=== PATIENT | male | born 1940 | race Caucasian/White ===

== ENCOUNTER 2017-10-09 09:44 | Inpatient (IN) | payer MEDICARE, OTHER ==
[~2017-10-09] VITALS: Ht 177.8 cm; Wt 68.0 kg
--- NOTE | 2017-10-09 09:50 | NUR ---
ERIC FROM [facility] FOR NAUSEA AND VOMITING, REPOTS 1 EPISODE OF COFFEE GROUND EMESIS. NO ACTIVE VOMITING NOTED. PT AAOX3. MD AT BS AND TESTED PT FOR OCCULT BLOOD- NEGATIVE. VSS. SAFETY AND COMFORT MEASURES PROVIDED. WILL MONITOR.
[2017-10-09] MEDS ORDERED: ONDANSETRON HCL/PF 4 MG/2 ML VIAL ONE (10:16)
[2017-10-09 10:25] LABS: BASOPHILS # (AUTO) 0.1 /CMM (0.0-0.2); BASOPHILS % (AUTO) 0.5 % (0.0-2.0); EOSINOPHILS % (AUTO) 0.1 % (0.0-6.0); HEMATOCRIT 35 % (39-51); HEMOGLOBIN 11.3 g/dL (13.5-17.5); LYMPHOCYTES # (AUTO) 0.4 /CMM (0.8-4.8); MEAN CORPUSCULAR HEMOGLOBIN 28 PG (26.0-33.0); MEAN CORPUSCULAR HGB CONC 32 g/dl (31.0-36.0); MEAN CORPUSCULAR VOLUME 87 fL (80-96); MONOCYTES # (AUTO) 0.6 /CMM (0.1-1.30); MONOCYTES % (AUTO) 4.1 % (2.0-12.0); NEUTROPHILS # (AUTO) 12.8 /CMM (1.8-8.9); NEUTROPHILS % (AUTO) 92.3 % (43.0-81.0); PLATELET COUNT (AUTO) 440 /CMM (150-450); RDW COEFFICIENT OF VARIATION 15.7 (11.5-15.0); RED BLOOD CELL COUNT(AUTO) 4.07 MIL/uL (4.5-6.0); WHITE BLOOD COUNT (AUTO) 13.9 K/uL (4.3-11.0)
--- NOTE | 2017-10-09 10:29 | NUR ---
IV ACCESS STARTED. BLOOD DRAWN FOR LABS AND MEDICATED ORDERED.
[2017-10-09] MEDS ORDERED: IV NS 0.9% 500 ML BAG IV ONE (10:30)
[2017-10-09] MEDS ORDERED: ONDANSETRON HCL/PF 4 MG/2 ML VIAL IVP ONE (10:30)
[2017-10-09 10:33] LABS: CALCIUM, SERUM 9.4 mg/dL (8.5-10.1); CARBON DIOXIDE 37 mmol/L (21-32); CHLORIDE 94 mmol/L (98-107); CREATININE 0.7 mg/dL (0.6-1.3); GLUCOSE 140 mg/dL (74-106); POTASSIUM 4.6 mmol/L (3.5-5.1); SODIUM SERUM 130 mmol/L (136-145); UREA NITROGEN, BLOOD 29 mg/dL (7-18)
[2017-10-09 10:37] LABS: INR 1.11 (0.85-1.15)
[2017-10-09] MEDS ORDERED: ACET-2605 GT (10:37)
[2017-10-09] MEDS ORDERED: ATOR10TA GT (10:37)
[2017-10-09] MEDS ORDERED: FOLI1TAB16 GT (10:37)
[2017-10-09] MEDS ORDERED: TIOT18CA3 IH (10:37)
[2017-10-09] MEDS ORDERED: IPRA3AMP23 IH (10:37)
[2017-10-09] MEDS ORDERED: MEMA10SO GT (10:37)
[2017-10-09] MEDS ORDERED: DOCU50LI GT (10:37)
[2017-10-09] MEDS ORDERED: MULT-447 GT (10:37)
[2017-10-09] MEDS ORDERED: THIA100T13 GT (10:37)
[2017-10-09] MEDS ORDERED: MAGN400O6 GT (10:37)
[2017-10-09] MEDS ORDERED: ACET650S26 GT (10:37)
[2017-10-09] MEDS ORDERED: TERA2CAP4 GT (10:37)
[2017-10-09] MEDS ORDERED: SENN-167 GT (10:37)
[2017-10-09] MEDS ORDERED: NUTR150016 GT (10:37)
[2017-10-09] MEDS ORDERED: ASCO500T9 GT (10:37)
[2017-10-09 10:38] LABS: ALANINE AMINOTRANSFERASE 32 U/L (12-78); ALBUMIN 2.5 g/dL (3.4-5.0); ALKALINE PHOSPHATASE 108 U/L (46-116); ASPARTATE AMINOTRANSFERASE 23 U/L (15-37); BILIRUBIN,DIRECT 0.1 mg/dL (0.0-0.2); BILIRUBIN,TOTAL 0.3 mg/dL (0.2-1.0); LIPASE 122 U/L (73-393); TOTAL PROTEIN, SERUM 8.5 g/dL (6.4-8.2)
[2017-10-09 10:41] LABS: TROPONIN I < 0.017 ng/mL (0.00-0.056)
--- NOTE | 2017-10-09 10:49 | NUR ---
[facility] paged [phone], maykel packer dnp complaint investigations officer
[2017-10-09] MEDS ORDERED: METOCLOPRAMIDE HCL 10 MG/2 ML VIAL ONE (10:57)
[2017-10-09] MEDS ORDERED: MORPHINE SULFATE INJ 2 MG/ML DISP.SYRIN ONE (10:58)
[2017-10-09] MEDS ORDERED: MORPHINE SULFATE INJ 2 MG/ML DISP.SYRIN IV ONE (11:00)
[2017-10-09] MEDS ORDERED: IV NS 0.9% 500 ML IV ONE (11:00)
[2017-10-09] MEDS ORDERED: METOCLOPRAMIDE HCL 10 MG/2 ML VIAL IV ONE (11:00)
[2017-10-09] MEDS ORDERED: PANTOPRAZOLE 40 MG VIAL IV ONE (11:00)
[2017-10-09] MEDS ORDERED: PANTOPRAZOLE 40 MG VIAL ONE (11:16)
--- NOTE | 2017-10-09 11:38 | NUR ---
REPORT GIVEN TO DERRICK AREVALO FOR TELE.
[2017-10-09 12:00] VITALS: BP 112/71
--- NOTE | 2017-10-09 12:00 | NUR ---
SUPERVISOR SAMPLE NOTES ADMITTED FOR ER REPORT GIVEN BY IHSAN. PATIENT ALERT ORIENTED X 4, NO ACUTE DISTRESS NOTED. BREATHING UNLABORED. SKIN IS SOFT AND WARM TO TOUCH. ON 2LPM VIA NC SATURATING AT 97%. NO SOB NOTED. IV ACCESS PATENT AND INTACT, NO REDNESS OR SWELLING NOTED. GTUBE INTACT AND PATENT. PHOTOS TAKEN PLACED AT THE CHART.PLACED TELE MONITOR. ORIENTED TO THE ROOM. SAFETY MEASURES IN PLACE. CALL LIGHT WITHIN REACH WILL CONTINUE TO MONITOR ACCORDINGLY.
[2017-10-09] MEDS ORDERED: MAGNESIUM HYDROXIDE 30 ML UDC GT PRN (14:00)
[2017-10-09] MEDS ORDERED: Z GUARD REMEDY 2 OZ OINT TP PRN (14:00)
[2017-10-09] MEDS ORDERED: ONDANSETRON HCL/PF 4 MG/2 ML VIAL IVP PRN (14:00)
[2017-10-09] MEDS: IV NS 0.9% 1,000 ML IV PRN (14:58)
[2017-10-09 16:00] VITALS: BP 112/68
--- NOTE | 2017-10-09 16:00 | NUR ---
VALIDATION INTERN NOTES SEEN AND EVALUATED BY DR MARTIN WETZEL, SAID NO GI INTERVENTION FOR NOW, MAY START GTUBE FEEDING.
[2017-10-09] MEDS ORDERED: FEE PK DOSING 1 MIN EA MC ONE (16:58)
[2017-10-09] MEDS ORDERED: VANCOMYCIN 1 GM in IV D5W 250 ML IV ONE (17:00)
[2017-10-09] MEDS: JEVITY 1.2 CAL 1,000 ML BOTTLE GT PRN (17:35)
[2017-10-09] MEDS: DOCUSATE SODIUM LIQ 100 MG/10 ML UDC GT SCH (17:35)
--- NOTE | 2017-10-09 18:54 | NUR ---
TALLOW PUMPER NOTES PATIENT IN BED EYES CLOSED, AROUSABLE. RESPONSIVE TO VERBAL AND TACTILE STIMULI. NO ACUTE DISTRESS NOTED. BREATHING UNLABORED. NO SOB NOTED. IV ACCESS PATENT AND INTACT, NO REDNESS OR SWELLING NOTED. GTUBE FEEDING INFUSING WELL. HOB ELEVATED. SAFETY MEASURES IN PLACE. DUE MEDICATIONS GIVEN NO ASE NOTED. NEEDS ATTENDED AND ANTICIPATED. CALL LIGHT WITHIN REACH. WILL CONTINUE TO MONITOR ACCORDINGLY. WILL ENDORSE TO NIGHT NURSE FOR CONTINUITY OF CARE.
[2017-10-09] MEDS: PIPERACILLIN /TAZOBACTAM 3.375 G in IV D5W 50 ML IV SCH (18:57)
--- NOTE | 2017-10-09 19:10 | NUR ---
TELE/RN NOTES RECEIVED PT. LYING IN BED. PT. IS AWAKE, ALERT AND ORIENTED X2-3. BREATHING EVEN AND UNLABORED ON 2LPM O2 VIA NC. NO SOB, RESPIRATORY DISTRESS OR COMPLAINTS OF PAIN NOTED AT THIS TIME. NO COMPLAINTS OF N/V AT THIS TIME. NO S/S OF BLEEDING NOTED AT THIS TIME. PT. WITH EXTERNAL SNORKELLING INSTRUCTOR PRESENT AND INTACT. CURRENT RHYTHM = SINUS TACHYCARDIA HR 106. PT. WITH RIGHT FOREARM 20 GAUGE PERIPHERAL IV PRESENT, PATENT AND INTACT ADMINISTERING TO PT. NS @ 75ML/HR. PT. WITH G-TUBE PRESENT, PATENT AND INTACT ADMINISTERING TO PT. JEVITY @ 75 ML/HR. PT. TOLERATING WELL, NO RESIDUAL NOTED AT THIS TIME. BED LOCKED AND IN LOWEST POSITION, SIDE RAILS UP X3, BED ALARM ON, CALL LIGHT WITHIN REACH, WILL CONTINUE TO MONITOR.
[2017-10-09] MEDS: IPRATROPIUM NEB FS 0.5 MG/2.5 ML AMPUL.NEB NEB SCH (19:30)
[2017-10-09 20:00] VITALS: BP 107/60
[2017-10-09] MEDS: PANTOPRAZOLE 40 MG/PACK PACK GT SCH (21:35)
[2017-10-09] MEDS: SENNOSIDES 8.6 MG TABLET GT SCH (21:35)
[2017-10-09] MEDS: TERAZOSIN HCL 1 MG CAPSULE GT SCH (21:36)
[2017-10-09] MEDS: ATORVASTATIN 10 MG TABLET GT SCH (21:36)
[2017-10-10] MEDS: PIPERACILLIN /TAZOBACTAM 3.375 G in IV D5W 50 ML IV SCH ×4 (00:28→17:21)
[2017-10-10] MEDS: IPRATROPIUM NEB FS 0.5 MG/2.5 ML AMPUL.NEB NEB SCH ×4 (01:30→19:34)
[2017-10-10] MEDS: VANCOMYCIN 1 GM in IV D5W 250 ML IV SCH ×2 (04:51→16:16)
[2017-10-10] MEDS: IV NS 0.9% 1,000 ML IV PRN ×2 (05:54→22:05)
--- NOTE | 2017-10-10 06:23 | NUR ---
MS/RN NOTES PT. IS LYING IN BED RESTING. BREATHING EVEN AND UNLABORED ON 2LPM O2 VIA NC. NO SOB, RESPIRATORY DISTRESS OR COMPLAINTS OF PAIN NOTED AT THIS TIME. NO COMPLAINTS OF N/V AT THIS TIME AND THROUGHOUT SHIFT. NO S/S OF BLEEDING NOTED AT THIS TIME AND THROUGHOUT SHIFT. WITH RIGHT FOREARM 20 GAUGE PERIPHERAL IV PRESENT, PATENT AND INTACT ADMINISTERING TO PT. NS @ 75ML/HR. PT. WITH G-TUBE PRESENT, PATENT AND INTACT ADMINISTERING TO PT. JEVITY @ 75 ML/HR. PT. TOLERATING WELL, NO RESIDUAL NOTED AT THIS TIME AND THROUGHOUT SHIFT. ALL PT. NEEDS MET. PT. OFFLOADED, PT. TURNED AND REPOSITIONED Q2H AND NEEDED. BED LOCKED AND IN LOWEST POSITION, SIDE RAILS UP X3, BED ALARM ON, CALL LIGHT WITHIN REACH, WILL ENDORSE TO DAYSHIFT NURSE FOR CONTINUITY OF CARE.
[2017-10-10 06:56] LABS: HEMATOCRIT 28 % (39-51); HEMOGLOBIN 8.8 g/dL (13.5-17.5); LYMPHOCYTES # (AUTO) 0.3 /CMM (0.8-4.8); LYMPHOCYTES % (AUTO) 1.2 % (20.0-44.0); MEAN CORPUSCULAR HEMOGLOBIN 28 PG (26.0-33.0); MEAN CORPUSCULAR HGB CONC 31 g/dl (31.0-36.0); MEAN CORPUSCULAR VOLUME 90 fL (80-96); MONOCYTES # (AUTO) 1.4 /CMM (0.1-1.30); MONOCYTES % (AUTO) 5.6 % (2.0-12.0); NEUTROPHILS # (AUTO) 23.1 /CMM (1.8-8.9); NEUTROPHILS % (AUTO) 93.2 % (43.0-81.0); PLATELET COUNT (AUTO) 293 /CMM (150-450); RDW COEFFICIENT OF VARIATION 16.8 (11.5-15.0); RED BLOOD CELL COUNT(AUTO) 3.11 MIL/uL (4.5-6.0); RETICULOCYTE COUNT 3.3 % (0.6-2.5); WHITE BLOOD COUNT (AUTO) 24.8 K/uL (4.3-11.0)
--- NOTE | 2017-10-10 07:05 | NUR ---
AUTOMATIC PRESSER NOTES PATIENT LYING IN BED COMFORTABLY, EYES CLOSED, AROUSABLE. RESPONSIVE TO VERBAL AND TACTILE STIMULI. NO ACUTE DISTRESS NOTED. BREATHING UNLABORED. NO SOB NOTED.ON O2 @ 2LPM VIA NC. IV ACCESS PATENT AND INTACT, NO REDNESS OR SWELLING NOTED. GTUBE FEEDING INFUSING WELL. HOB ELEVATED. SAFETY MEASURES IN PLACE. CALL LIGHT WITHIN REACH. WILL CONTINUE TO MONITOR ACCORDINGLY.
[2017-10-10 07:13] LABS: ALANINE AMINOTRANSFERASE 27 U/L (12-78); ALBUMIN 1.8 g/dL (3.4-5.0); ALKALINE PHOSPHATASE 73 U/L (46-116); ASPARTATE AMINOTRANSFERASE 18 U/L (15-37); BILIRUBIN,TOTAL 0.2 mg/dL (0.2-1.0); CALCIUM, SERUM 7.5 mg/dL (8.5-10.1); CARBON DIOXIDE 33 mmol/L (21-32); CHLORIDE 100 mmol/L (98-107); CREATININE 0.6 mg/dL (0.6-1.3); GLUCOSE 181 mg/dL (74-106); MAGNESIUM 1.8 mg/dL (1.8-2.4); PHOSPHORUS 2.1 mg/dL (2.5-4.9); POTASSIUM 4.3 mmol/L (3.5-5.1); SODIUM SERUM 133 mmol/L (136-145); TOTAL PROTEIN, SERUM 6.2 g/dL (6.4-8.2); UREA NITROGEN, BLOOD 18 mg/dL (7-18)
[2017-10-10 07:18] LABS: CHOLESTEROL 59 mg/dL (<200); HDL CHOLESTEROL 40 mg/dL (40-60); LDL 22 mg/dL (0-99); THYROID STIMULATING HORMONE 0.673 uIU/mL (0.358-3.74); TRIGLYCERIDES 10 mg/dL (30-150)
[2017-10-10 07:45] LABS: IRON, SERUM 11 ug/dl (50-175); TOTAL IRON BINDING CAPACITY 206 ug/dl (250-450)
[2017-10-10 08:00] VITALS: BP 93/51
[2017-10-10] MEDS: JEVITY 1.2 CAL 1,000 ML BOTTLE GT PRN (08:41)
[2017-10-10] MEDS: PANTOPRAZOLE 40 MG/PACK PACK GT SCH ×2 (08:42→21:51)
[2017-10-10] MEDS: DOCUSATE SODIUM LIQ 100 MG/10 ML UDC GT SCH ×2 (08:42→17:20)
[2017-10-10] MEDS: FOLIC ACID 1 MG TABLET GT SCH (08:42)
[2017-10-10] MEDS: ASCORBIC ACID 500 MG TABLET GT SCH (08:42)
[2017-10-10] MEDS: MEMANTINE HCL 5 MG TABLET GT SCH (08:42)
[2017-10-10] MEDS: THIAMINE HCL 100 MG TABLET GT SCH (08:42)
[2017-10-10] MEDS ORDERED: TIOTROPIUM BROMIDE 6 CAP/BOX CAP.W.DEV IH SCH (09:00)
[2017-10-10 09:20] LABS: BAND % (MANUAL) 2 % (0.0-5.0); LYMPHOCYTES % (MANUAL) 1 % (16-48); MONOCYTES % (MANUAL) 6 % (0-11.0); NEUTROPHILS % (MANUAL) 91 (42-76)
[2017-10-10] MEDS ORDERED: NEUTRA PHOS 1 POWD.PACKET PO ONE (15:30)
[2017-10-10 16:00] VITALS: BP 90/51
--- NOTE | 2017-10-10 19:00 | NUR ---
MS RN NOTES PATIENT LYING IN BED COMFORTABLY, WATCHING TV, ALERT ORIENTED X3. NO ACUTE DISTRESS NOTED. BREATHING UNLABORED. NO SOB NOTED.ON O2 @ 2LPM VIA NC. IV ACCESS PATENT AND INTACT, NO REDNESS OR SWELLING NOTED. GTUBE FEEDING INFUSING WELL. HOB ELEVATED. SAFETY MEASURES IN PLACE. CALL LIGHT WITHIN REACH. ENDORSED TO NIGHT NURSE FOR CONTINUITY OF CARE.
--- NOTE | 2017-10-10 19:10 | NUR ---
MS/RN NOTES RECEIVED PT. LYING IN BED. PT. IS AWAKE, ALERT AND ORIENTED X2-3. BREATHING EVEN AND UNLABORED ON 2LPM O2 VIA NC. NO SOB, RESPIRATORY DISTRESS OR COMPLAINTS OF PAIN NOTED AT THIS TIME. NO COMPLAINTS OF N/V AT THIS TIME. NO S/S OF BLEEDING NOTED AT THIS TIME. PT. WITH RIGHT FOREARM 20 GAUGE PERIPHERAL IV PRESENT, PATENT AND INTACT ADMINISTERING TO PT. NS @ 75ML/HR. PT. WITH G-TUBE PRESENT, PATENT AND INTACT ADMINISTERING TO PT. JEVITY @ 75 ML/HR. PT. TOLERATING WELL, NO RESIDUAL NOTED AT THIS TIME. BED LOCKED AND IN LOWEST POSITION, SIDE RAILS UP X3, BED ALARM ON, CALL LIGHT WITHIN REACH, WILL CONTINUE TO MONITOR.
[2017-10-10] MEDS: ACETAMINOPHEN 650 MG/20.3 ML UDC GT PRN (20:15)
[2017-10-10 20:38] VITALS: BP 94/58
[2017-10-10 21:17] LABS: APPEARANCE,URINE CLEAR (CLEAR); BILIRUBIN,URINE NEGATIVE (NEGATIVE); BLOOD, URINE NEGATIVE Ery/uL (NEGATIVE); COLOR,URINE YELLOW (YELLOW); KETONES,URINE TRACE (NEGATIVE); LEUKOCYTE ESTERASE ,URINE NEGATIVE (NEGATIVE); NITRITE, URINE NEGATIVE (NEGATIVE); PROTEIN,URINE TRACE mg/dl (NEGATIVE); UGLUCOSE NEGATIVE (NEGATIVE)
[2017-10-10 21:35] LABS: BACTERIA,URINE None seen /HPF (None Seen); RBC,URINE 0-2 /HPF (0-2); SQUAMOUS EPITHELIAL CELL,UR Few /HPF (None Seen); WBC,URINE 0-2 /HPF (0-3)
[2017-10-10] MEDS: ATORVASTATIN 10 MG TABLET GT SCH (21:51)
[2017-10-10] MEDS: TERAZOSIN HCL 1 MG CAPSULE GT SCH (21:51)
[2017-10-10] MEDS: SENNOSIDES 8.6 MG TABLET GT SCH (21:51)
[2017-10-11] MEDS: PIPERACILLIN /TAZOBACTAM 3.375 G in IV D5W 50 ML IV SCH ×5 (00:20→23:34)
[2017-10-11] MEDS: IPRATROPIUM NEB FS 0.5 MG/2.5 ML AMPUL.NEB NEB SCH ×4 (01:42→19:35)
[2017-10-11] MEDS: JEVITY 1.2 CAL 1,000 ML BOTTLE GT PRN (03:58)
[2017-10-11] MEDS: HYDROCODONE/APAP 10/325MG 1 EA TABLET GT PRN ×3 (04:08→16:04)
[2017-10-11 04:46] LABS: HEMATOCRIT 27 % (39-51); HEMOGLOBIN 8.3 g/dL (13.5-17.5); LYMPHOCYTES # (AUTO) 0.5 /CMM (0.8-4.8); LYMPHOCYTES % (AUTO) 2.8 % (20.0-44.0); MEAN CORPUSCULAR HEMOGLOBIN 28 PG (26.0-33.0); MEAN CORPUSCULAR HGB CONC 31 g/dl (31.0-36.0); MEAN CORPUSCULAR VOLUME 90 fL (80-96); MONOCYTES # (AUTO) 1.8 /CMM (0.1-1.30); MONOCYTES % (AUTO) 10.3 % (2.0-12.0); NEUTROPHILS # (AUTO) 15.1 /CMM (1.8-8.9); NEUTROPHILS % (AUTO) 86.9 % (43.0-81.0); PLATELET COUNT (AUTO) 290 /CMM (150-450); RDW COEFFICIENT OF VARIATION 16.5 (11.5-15.0); RED BLOOD CELL COUNT(AUTO) 2.97 MIL/uL (4.5-6.0); WHITE BLOOD COUNT (AUTO) 17.4 K/uL (4.3-11.0)
[2017-10-11 05:00] LABS: CARBON DIOXIDE 33 mmol/L (21-32); CHLORIDE 99 mmol/L (98-107); CREATININE 0.6 mg/dL (0.6-1.3); GLUCOSE 88 mg/dL (74-106); MAGNESIUM 1.9 mg/dL (1.8-2.4); PHOSPHORUS 2.6 mg/dL (2.5-4.9); SODIUM SERUM 130 mmol/L (136-145); UREA NITROGEN, BLOOD 16 mg/dL (7-18)
[2017-10-11] MEDS: VANCOMYCIN 1 GM in IV D5W 250 ML IV SCH ×2 (05:20→18:03)
--- NOTE | 2017-10-11 06:56 | NUR ---
MS/RN NOTES PT. IS LYING IN BED RESTING. BREATHING EVEN AND UNLABORED ON 2LPM O2 VIA NC. NO SOB, RESPIRATORY DISTRESS OR COMPLAINTS OF PAIN NOTED AT THIS TIME. PT. WITH RIGHT FOREARM 20 GAUGE PERIPHERAL IV PRESENT, PATENT AND INTACT ADMINISTERING TO PT. NS @ 75ML/HR. PT. WITH G-TUBE PRESENT, PATENT AND INTACT ADMINISTERING TO PT. JEVITY @ 75 ML/HR. PT. TOLERATING WELL, NO RESIDUAL NOTED AT THIS TIME. ALL PT. NEEDS MET. PT. OFFLOADED, TURNED AND REPOSITIONED Q2H AND NEEDED. BED LOCKED AND IN LOWEST POSITION, SIDE RAILS UP X3, BED ALARM ON, CALL LIGHT WITHIN REACH, WILL ENDORSE TO DAYSHIFT NURSE FOR CONTINUITY OF CARE.
--- NOTE | 2017-10-11 07:40 | NUR ---
MS RN OPENING NOTES RECEIVED PT LAYING IN BED WITH HOB ELEVATED, RESTING COMFORTABLY. PT IS ALERT AND RESPONSIVE. PUPILS ARE REACTIVE TO LIGHT. BILATERAL HAND HYDROELECTRIC COMPONENT MACHINIST ARE STRONG AND EQUAL. PT DENIES ANY PAIN, N/V, SOB. IV INTACT, NO INFILTRATION NOTED. DRESSING KEPT CLEAN AND DRY. GT INTACT, RECEIVING JEVITY 1.2 @ 75ML/HR X20 HRS, NO RESIDUAL NOTED. ELEVATED HOB TO PREVENT ANY ASPIRATION. SAFETY MEASURES ARE IN PLACE. CALL LIGHT IS LEFT WITHIN REACH. WILL MONITOR THROUGHOUT SHIFT FOR CONTINUITY OF CARE.
--- NOTE | 2017-10-11 09:15 | NUR ---
MS RN NOTE RECEIVED REPORT FROM SHELBY. PATIENT WAS TRANSFERRED TO [facility] SECOND FLOOR ACCOMPANIED BY ASSIGNED RN AND POWER BALLAST MACHINE OPERATOR. PATIENT IS STABLE. ALERT ORIENTED X3, VITAL SIGNS STABLE. IN NO APPARENT DISTRESS OR DISCOMFORT AT THIS TIME. ON 3L O2 VIA NC. TOLERATING WELL. DENIES PAIN AND SOB. IV ACCESS ON RIGHT FA PATENT AND INTACT. G-TUBE IN PLACE, PATENT WITH 3ML RESIDUAL. WAS MADE COMFORTABLE IN BED. PATIENT KEPT CLEAN. SAFETY MEASURES IN PLACE, BED IN LOW LOCKED POSITION, SIDE RAILS UP X2, CALL LIGHT WITHIN EASY REACH, FAMILY AT BEDSIDE. WILL TAKE OVER PATIENT'S CARE AND CARRY OUT ALL FURTHER ORDERS.
--- NOTE | 2017-10-11 09:15 | NUR ---
MS BIOFUELS MANAGER NOTE PT TRANSFERRED TO [facility] 201 IN STABLE CONDITION VIA GURNEY. PT IS A/O X2-3, AFEBRILE. RESPIRATIONS ARE EVEN AND UNLABORED, NOT IN ANY ACUTE DISTRESS NOTED. PT DENIES ANY PAIN AT THIS TIME, NO C/O SOB, N/V NOTED. IV ACCESS INTACT, NO INFILTRATION NOTED. DRESSING KEPT CLEAN AND DRY. GT IN PLACE, PT TOLERATING FEEDING WELL. NO RESIDUAL NOTED. GAVE REPORT TO CHARLIE AREVALO AT BEDSIDE FOR CONTINUITY OF CARE.
[2017-10-11] MEDS: DOCUSATE SODIUM LIQ 100 MG/10 ML UDC GT SCH ×2 (09:34→16:04)
[2017-10-11] MEDS: THIAMINE HCL 100 MG TABLET GT SCH (09:34)
[2017-10-11] MEDS: ASCORBIC ACID 500 MG TABLET GT SCH (09:34)
[2017-10-11] MEDS: FOLIC ACID 1 MG TABLET GT SCH (09:34)
[2017-10-11] MEDS: PANTOPRAZOLE 40 MG/PACK PACK GT SCH ×2 (09:34→21:12)
[2017-10-11] MEDS: MEMANTINE HCL 5 MG TABLET GT SCH (09:34)
[2017-10-11 16:00] VITALS: BP 96/57
--- NOTE | 2017-10-11 17:30 | NUR ---
DURING MORNING ROUNDS, RECEIVED ORDER FROM KEVIN ISABEL NP TO OBTAIN STOOL SAMPLE FOR THE PATIENT. LATER IN THE DAY GI DOCTOR DR. WETZEL CAME, ASSESSED THE PATIENT AND ORDERED TO CANCEL THE STOOL OCCULT BLOOD TEST, THERE IS NO NEED ACCORDING TO HIM. ALSO GAVE VERBAL ORDER TO DISCONTINUE COLACE AND PLACE AND ORDER FOR MIRALAX ONE TIMES DAILY. VERBAL ORDERS READ BACK AND VERIFIED. WILL CARRY OUT AND CONTINUE TO MONITOR.
--- NOTE | 2017-10-11 19:40 | NUR ---
MS RN OPENING NOTES RECEIVED PT LAYING IN BED WITH HOB ELEVATED, RESTING COMFORTABLY. PT IS ALERT AND RESPONSIVE. PUPILS ARE REACTIVE TO LIGHT. BILATERAL HAND PLY BANDER ARE STRONG AND EQUAL. PT C/O MILD BACK PAIN, NO N/V, NO SOB. IV INTACT TO RFA WITH IVF ORDERED, NO INFILTRATION NOTED. DRESSING KEPT CLEAN AND DRY. GT INTACT, RECEIVING JEVITY 1.2 @ 75ML/HR X20 HRS, 8ML RESIDUAL NOTED. NPO. ELEVATED HOB TO PREVENT ANY ASPIRATION. SAFETY MEASURES ARE IN PLACE. CALL LIGHT IS LEFT WITHIN REACH. WILL MONITOR THROUGHOUT SHIFT FOR CONTINUITY OF CARE.
--- NOTE | 2017-10-11 19:48 | NUR ---
MS RN CLOSING NOTE PATIENT IN BED. SLEEPING, EASILY AROUSED WITH VERBAL STIMULI. ORIENTED X3, ON 3L O2 VIA NC. TOLERATING WELL. IN NO APPARENT DISTRESS OR DISCOMFORT AT THIS TIME. RESPIRATIONS EVEN AND UNLABORED. ABLE TO COMMUNICATE NEEDS. PATIENT USES DIAPER FOR ELIMINATION. GT FOR FEEDING WITH FEEDING RUNNING AT 75CC/HR. TOLERATING FEEDING WELL. IV FLUIDS RUNNING AT 75ML/HR VIA RIGHT HAND IV ACCESS. NO SIGN OF INFILTRATION IDENTIFIED. PATIENT KEPT CLEAN AND COMFORTABLE, ALL NEEDS ATTENDED. TURNED AND REPOSITIONED PER PROTOCOL. SAFETY MEASURES IN PLACE, BED IN LOW LOCKED POSITION, SIDE RAILS UP X2, CALL LIGHT WITHIN EASY REACH. WILL ENDORSE TO PM NURSE FOR BALJEET.
[2017-10-11 20:00] VITALS: BP 102/61
[2017-10-11] MEDS: ATORVASTATIN 10 MG TABLET GT SCH (21:12)
[2017-10-11] MEDS: SENNOSIDES 8.6 MG TABLET GT SCH (21:12)
[2017-10-11] MEDS: TERAZOSIN HCL 1 MG CAPSULE GT SCH (21:13)
[2017-10-11] MEDS: ACETAMINOPHEN 650 MG/20.3 ML UDC GT PRN (21:13)
--- NOTE | 2017-10-11 21:13 | NUR ---
PRN TYLENOL GIVEN PT HAD C/O PAIN IN THE BACK 05/16 & ASKED TO GET PAIN MEDICINE. PRN TYLENOL GIVEN VIA GT ORDERED. WILL MONITOR FOR EFFECTIVENESS.
[2017-10-12] MEDS: IPRATROPIUM NEB FS 0.5 MG/2.5 ML AMPUL.NEB NEB SCH ×3 (00:30→12:27)
[2017-10-12] MEDS: JEVITY 1.2 CAL 1,000 ML BOTTLE GT PRN (00:58)
[2017-10-12] MEDS: VANCOMYCIN 1 GM in IV D5W 250 ML IV SCH ×2 (04:28→16:15)
[2017-10-12] MEDS: IV NS 0.9% 1,000 ML IV PRN (05:29)
[2017-10-12] MEDS: PIPERACILLIN /TAZOBACTAM 3.375 G in IV D5W 50 ML IV SCH ×2 (05:42→12:34)
--- NOTE | 2017-10-12 06:57 | NUR ---
MS RN CLOSING NOTE PATIENT IN BED, AWAKE, ORIENTED X 3, ON 3L O2 VIA NC. TOLERATING WELL. IN NO APPARENT DISTRESS OR DISCOMFORT AT THIS TIME. RESPIRATIONS EVEN AND UNLABORED. ABLE TO COMMUNICATE NEEDS. GT FOR FEEDING WITH FEEDING RUNNING AT 75CC/HR. TOLERATING WELL. IV FLUIDS RUNNING AT 75ML/HR VIA RIGHT FA IV ACCESS. NO SIGN OF INFILTRATION IDENTIFIED. PATIENT KEPT CLEAN AND COMFORTABLE, ALL NEEDS ATTENDED. TURNED AND REPOSITIONED PER PROTOCOL. SAFETY MEASURES IN PLACE, BED IN LOW LOCKED POSITION, SIDE RAILS UP X2, CALL LIGHT WITHIN EASY REACH. WILL ENDORSE TO PM NURSE FOR BALJEET.
[2017-10-12 06:58] LABS: BASOPHILS % (AUTO) 0.2 % (0.0-2.0); EOSINOPHILS % (AUTO) 0.1 % (0.0-6.0); HEMATOCRIT 26 % (39-51); LYMPHOCYTES # (AUTO) 0.4 /CMM (0.8-4.8); LYMPHOCYTES % (AUTO) 4.7 % (20.0-44.0); MEAN CORPUSCULAR HEMOGLOBIN 28 PG (26.0-33.0); MEAN CORPUSCULAR HGB CONC 31 g/dl (31.0-36.0); MEAN CORPUSCULAR VOLUME 91 fL (80-96); MONOCYTES # (AUTO) 1.2 /CMM (0.1-1.30); MONOCYTES % (AUTO) 14.1 % (2.0-12.0); NEUTROPHILS # (AUTO) 6.9 /CMM (1.8-8.9); NEUTROPHILS % (AUTO) 80.9 % (43.0-81.0); PLATELET COUNT (AUTO) 266 /CMM (150-450); RDW COEFFICIENT OF VARIATION 16.5 (11.5-15.0); RED BLOOD CELL COUNT(AUTO) 2.84 MIL/uL (4.5-6.0); WHITE BLOOD COUNT (AUTO) 8.6 K/uL (4.3-11.0)
--- NOTE | 2017-10-12 07:08 | NUR ---
WOUND CARE CONSULT WOUND CARE RECEIVED CONSULT FOR WOUND CARE. WOUND CARE WILL DEFER CONSULT AND ALL TREATMENT PLANS TO SURGICAL TEAM WHO ARE CURRENTLY FOLLOWING. PATIENT WITH HORTENCIA AT 15. ALL PRESSURE ULCER PREVENTION MEASURES NOTED TO BE IN PLACE AT THIS TIME. WILL SEE PRN.
[2017-10-12 07:21] LABS: CALCIUM, SERUM 7.9 mg/dL (8.5-10.1); CARBON DIOXIDE 34 mmol/L (21-32); CHLORIDE 101 mmol/L (98-107); CREATININE 0.6 mg/dL (0.6-1.3); GLUCOSE 148 mg/dL (74-106); MAGNESIUM 1.9 mg/dL (1.8-2.4); PHOSPHORUS 2.9 mg/dL (2.5-4.9); POTASSIUM 4.3 mmol/L (3.5-5.1); SODIUM SERUM 134 mmol/L (136-145); UREA NITROGEN, BLOOD 12 mg/dL (7-18)
[2017-10-12 08:00] VITALS: BP 110/58
--- NOTE | 2017-10-12 08:00 | NUR ---
RN NOTES RECEIVED PATIENT IN THE BED. A/O X3, NO ACUTE RESPIRATORY DISTRESS, ON O2-3L NC, COUGHING. PATIENT WAS C/O PAIN GENERALIZED. ENCOURAGED TO EXPRESS FEELINGS AND CONCERNS. IV RIGHT FA INFUSING NS AT 75 ML/HR, G-TUBE FEEDING JEVITY 1.2 AT 75 ML/HR INTACT, SCHEDULED MEDICATION ADMINISTERED VIA G-TUBE, PATIENT INCONTINENT, ASSIST TURN AND REPOSTION Q 2 HR. KEEP HOB ELEVATED FOR ASPIRATION PRECAUTION, V/S STABLE, CALL LIGHT WITHIN TO REACH, SAFETY PRECAUTION MAINTAINED ALL THE TIME.
[2017-10-12] MEDS: THIAMINE HCL 100 MG TABLET GT SCH (08:20)
[2017-10-12] MEDS: MEMANTINE HCL 5 MG TABLET GT SCH (08:20)
[2017-10-12] MEDS: HYDROCODONE/APAP 10/325MG 1 EA TABLET GT PRN ×3 (08:21→16:51)
[2017-10-12] MEDS: ASCORBIC ACID 500 MG TABLET GT SCH (08:21)
[2017-10-12] MEDS: PANTOPRAZOLE 40 MG/PACK PACK GT SCH (08:21)
--- NOTE | 2017-10-12 08:21 | NUR ---
RN NOTES ADMINISTERED NARCO 10/325MG PO PRN VIA G-TUBE FOR GENERALIZED PAIN 10/10 PER PATIENT REQUEST, V/S TAKEN BP-110/58, P-89, CONTINUED MONITORING.
[2017-10-12] MEDS: FOLIC ACID 1 MG TABLET GT SCH (08:23)
[2017-10-12] MEDS ORDERED: PANT40TA2 PO (10:08)
--- NOTE | 2017-10-12 10:14 | NUR ---
RN NOTES PATIENT RESTING AT THIS TIME MEDICATION WERE ADMINISTERED FOR PAIN EFFECTIVE, NEXT TO THE BED, CALL LIGHT WITH TO REACH. ASSIST TURN AND D REPOSTION Q 2 HR.
--- NOTE | 2017-10-12 13:04 | NUR ---
RN NOTES ADMINISTERED NARCO 10/325 MG PO PRN FOR GENERALIZED PAIN 11/07- PER PATIENT REQUEST, V/S TAKEN BP-106/54, P-86, CONTINUED MONITORING.
[2017-10-12] MEDS: ACETAMINOPHEN 650 MG/20.3 ML UDC GT PRN (15:07)
--- NOTE | 2017-10-12 15:07 | NUR ---
RN NOTES ADMINISTERED TYLENOL 650 MG VIA G-TUBE PER PATIENT REQUEST FOR LOWER BACK PAIN 07/16, CONTINUED MONITORING.
[2017-10-12 16:07] VITALS: BP 124/72
--- NOTE | 2017-10-12 16:51 | NUR ---
RN NOTES ADMINISTERED NARCO 10/325 MG GT PRN FOR GENERALIZED PAIN ER PATIENT REQUEST, BP-124/72, P-95, CONTINUED MONITORING.
--- NOTE | 2017-10-12 17:31 | NUR ---
DISCHARGE NOTES PATIENT DISCHARGE AT THIS TIME GOING BACK TO SNF. PATIENT STABLE, MEDICATION WERE ADMINISTERED FOR PAIN EFFECTIVE. PATIENT ON O2-3 L NC, NO ACUTE RESPIRATORY DISTRESS, V/ S TABLE. G-TUBE INTACT. MED RECONCILIATION AND DISCHARGE ORDER REVIEWED AND EXPLAINED TO. REPORT GIVEN SNF RN. RN VERBALIZED UNDERSTANDING. BELONGING WITH THE PATIENT , AWARE OF DISCHARGE PLANING. PATIENT WILL FOLLOW SNF HARD CANDY BATCH MIXER. PATIENT FARM OR RANCH ANIMAL CARETAKER BY AMBULANCE.
[2017-10-12] MEDS ORDERED: POLYETHYLENE GLYCOL 3350 17 GM POWD.PACK PO SCH (22:00)
== END 2017-10-12 17:30 | DRG 871 ==
LOC: ER 09:49 → TELE 11:36 → MED 13:45 → MEDSG2 10-11 09:10
PROVIDERS: ADMIT Nurse Practitioner Acute Care; ATTEND Nurse Practitioner Acute Care
DX: A41.9 Sepsis, unspecified organism (principal); K25.0 Acute gastric ulcer with hemorrhage; J12.9 Viral pneumonia, unspecified; G93.40 Encephalopathy, unspecified; E87.1 Hypo-osmolality and hyponatremia; E44.0 Moderate protein-calorie malnutrition; J44.0 Chronic obstructive pulmonary disease with (acute) lower respiratory infection; E86.0 Dehydration; N40.0 Benign prostatic hyperplasia without lower urinary tract symptoms; F03.90 Unspecified dementia, unspecified severity, without behavioral disturbance, psychotic disturbance, mood disturbance, and anxiety; Z93.1 Gastrostomy status; R13.10 Dysphagia, unspecified; F25.9 Schizoaffective disorder, unspecified; K59.04 Chronic idiopathic constipation; Z79.899 Other long term (current) drug therapy; M85.9 Disorder of bone density and structure, unspecified; L89.150 Pressure ulcer of sacral region, unstageable; D17.0 Benign lipomatous neoplasm of skin and subcutaneous tissue of head, face and neck; D64.9 Anemia, unspecified
CPT/HCPCS: 36415; 71045-TC; 80048-TC; 80053-TC; 80061-TC; 80076-TC; 80202-TC; 81000-TC; 83540-TC; 83690-TC; 83735-TC; 84100-TC; 84443-TC; 84484-TC; 85025-TC; 85045-TC; 85730-TC; 86850-TC; 87081-TC; 87086-TC; 94760-TC; A4606; A6402; C9113; J2270; J2405; J2543; J2765; J3370; J7030; J7040; J7060; Z7610